=== PATIENT | male | born 1970 | race American Indian/Alaskan Native ===

== ENCOUNTER 2018-05-06 10:11 | Emergency (ER) | payer SELFPAY ==
[2018-05-06 11:33] LABS: BASO % 0.3 % (0.0-2.0); EOS # 0.1 K/uL (0.0-0.7); EOS % 0.8 % (0.0-4.0); HEMOGLOBIN 13.4 g/dL (12.0-18.0); LYMPH # 1.1 K/uL (1.0-4.3); LYMPH % 11.9 % (20.0-40.0); MEAN CORPUSCULAR HEMOGLOBIN 33.5 pg (27.0-31.0); MEAN CORPUSCULAR HGB CONC 33.3 g/dL (33.0-37.0); MONO # 1.8 K/uL (0.0-0.8); MONO % 19.9 % (0.0-10.0); NEUT % 67.1 % (50.0-75.0); RED CELL DISTRIBUTION WIDTH 12.9 % (11.5-14.5); WHITE BLOOD COUNT 8.9 K/uL (4.8-10.8)
[2018-05-06 11:36] LABS: MEAN CELL VOLUME 100.5 fL (80.0-94.0)
[2018-05-06 11:54] LABS: ALB/GLOB RATIO 1.4 (1.0-2.1); ALBUMIN 4.2 g/dL (3.5-5.0); ALT/SGPT 34 U/L (21-72); AST/SGOT 27 U/L (17-59); BLOOD UREA NITROGEN 11 mg/dL (9-20); CALCIUM 8.2 mg/dl (8.6-10.4); GFR NON-AFRICAN AMERICAN > 60
[2018-05-06 11:55] LABS: SQUAMOUS EPITHIAL < 1 /hpf (0-5); URINE BILIRUBIN NEGATIVE (NEGATIVE); URINE BLOOD NEGATIVE (NEGATIVE); URINE CLARITY Clear (Clear); URINE COLOR Yellow (YELLOW); URINE GLUCOSE (UA) NORMAL (Normal); URINE LEUKOCYTE ESTERASE NEG Leu/uL (Negative); URINE PROTEIN 1+ mg/dL (NEGATIVE); URINE UROBILINOGEN NORMAL mg/dL (0.2-1.0)
[2018-05-06 12:03] LABS: B-TYPE NATRIURETIC PEPTIDE 29.4 pg/mL (0-450)
[2018-05-06] MEDS ORDERED: Sodium Chloride 0.9% 1,000 ML IV ONE (12:03)
--- NOTE | 2018-05-06 12:09 | C.PDOC ---
History Of Present Illness 47 year old male presents to ED with complaint of fever for the past 2 days. Patient also complains of chills, body aches, and cough. He denies rash and vomiting. Time Seen by Provider: 05/06/18 10:47 Chief Complaint (Nursing): Cough, Cold, Congestion History Per: Patient History/Exam Limitations: no limitations Onset/Duration Of Symptoms: Days (2) Current Symptoms Are (Timing): Still Present Location Of Pain: Diffuse Myalgias Associated Symptoms: Fever, Chills, Cough, Myalgias. denies: Vomiting, Other (Rash) Past Medical History Reviewed: Historical Data, Nursing Documentation, Vital Signs Vital Signs: Last Vital Signs Temp 102.9 F H 05/06/18 10:33 Pulse 114 H 05/06/18 10:33 Resp 24 05/06/18 10:33 BP 155/87 H 05/06/18 10:33 Pulse Ox 92 L 05/06/18 10:33 - Medical History PMH: Asthma, HTN Surgical History: Cholecystectomy Family History: States: Unknown Family Hx - Social History Hx Tobacco Use: No Hx Alcohol Use: Yes Hx Substance Use: No - Immunization History Hx Tetanus Toxoid Vaccination: No Hx Influenza Vaccination: No Hx Pneumococcal Vaccination: No Review Of Systems Constitutional: Positive for: Fever, Chills, Malaise. Negative for: Weakness Eyes: Negative for: Redness Cardiovascular: Negative for: Chest Pain, Palpitations Respiratory: Positive for: Cough. Negative for: Shortness of Breath Gastrointestinal: Negative for: Vomiting Skin: Negative for: Rash Neurological: Negative for: Weakness, Numbness, Dizziness Physical Exam - Physical Exam Appears: Well, Non-toxic, No Acute Distress Skin: Normal Color, Warm, Diaphoretic Head: Atraumatic, Normacephalic Ear(s): Bilateral: Normal Throat: Normal, No Erythema, No Exudate Neck: Normal ROM, Supple Chest: Symmetrical, No Deformity Cardiovascular: Rhythm Regular, No Murmur Respiratory: No Accessory Muscle Use, No Rales, No Rhonchi, No Wheezing Gastrointestinal/Abdominal: Soft, No Tenderness Extremity: Capillary Refill (<2 seconds) Extremity: Bilateral: Atraumatic, Normal Color And Temperature Pulses: Left Radial: Normal, Right Radial: Normal Neurological/Psych: Oriented x3, Normal Speech, Normal Cognition ED Course And Treatment - Laboratory Results Result Diagrams: 05/06/18 11:29 05/06/18 11:29 Lab Results: NT-Pro-B Natriuret Pep 29.4 pg/mL (0-450) 05/06/18 11:29 Total Bilirubin 1.0 mg/dL (0.2-1.3) 05/06/18 11:29 AST 27 U/L (17-59) 05/06/18 11:29 ALT 34 U/L (21-72) 05/06/18 11:29 Alkaline Phosphatase 71 U/L (38-126) 05/06/18 11:29 Total Protein 7.4 g/dL (6.3-8.3) 05/06/18 11:29 Albumin 4.2 g/dL (3.5-5.0) 05/06/18 11:29 Globulin 3.1 gm/dL (2.2-3.9) 05/06/18 11:29 Albumin/Globulin Ratio 1.4 (1.0-2.1) 05/06/18 11:29 Urine Color Yellow (YELLOW) 05/06/18 11:40 Urine Clarity Clear (Clear) 05/06/18 11:40 Urine pH 5.0 (5.0-8.0) 05/06/18 11:40 Ur Specific [place] 1.025 (1.003-1.030) 05/06/18 11:40 Urine Protein 1+ mg/dL (NEGATIVE) H 05/06/18 11:40 Urine Glucose (UA) Normal mg/dL (Normal) 05/06/18 11:40 Urine Ketones Negative mg/dL (NEGATIVE) 05/06/18 11:40 Urine Blood Negative (NEGATIVE) 05/06/18 11:40 Urine Nitrate Negative (NEGATIVE) 05/06/18 11:40 Urine Bilirubin Negative (NEGATIVE) 05/06/18 11:40 Urine Urobilinogen Normal mg/dL (0.2-1.0) 05/06/18 11:40 Ur Leukocyte Esterase Neg [place]/uL (Negative) 05/06/18 11:40 Urine WBC (Auto) 2 /hpf (0-5) 05/06/18 11:40 Urine RBC (Auto) 1 /hpf (0-3) 05/06/18 11:40 Ur Squamous Epith Cells < 1 /hpf (0-5) 05/06/18 11:40 O2 Sat by Pulse Oximetry: 92 - Radiology CXR: Interpreted by Me, Viewed By Me CXR Interpretation: Yes: Other (minimal plearul effusions on the right side) Progress Note: Labs ordered with UA and flu a/b for patient. CXR ordered for patient. Medical Decision Making Medical Decision Making: On re-exam, the patient reports improvement of symptoms. Lungs are CTA, heart is RRR, abdomen is soft, non-tender and tolerating PO well. Ambulatory in the ED with steady gait. Follow up with the medical doctor within 1-2 days. Return if worsened. Disposition - Disposition Referrals: Kenya Lugo MD [Staff Provider] - Disposition: HOME/ ROUTINE Disposition Time: 13:00 Condition: FAIR Additional Instructions: Follow up with the medical doctor within 1-2 days. Return if worsened. 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 (Delia Renteria) - Scribe Statement The provider has reviewed the documentation as recorded by the Scribe (Delia Renteria) All medical record entries made by the Scribe were at my direction and personally dictated by me. I have reviewed the chart and agree that the record accurately reflects my personal performance of the history, physical exam, medical decision making, and the department course for this patient. I have also personally directed, reviewed, and agree with the discharge instructions and disposition.
--- NOTE | 2018-05-06 13:11 | RAD ---
Date of service: 05/06/2018 HISTORY: fever cough COMPARISON: No prior. TECHNIQUE: Chest PA and lateral FINDINGS: LUNGS: Small opacities at the lung bases. Mild elevation of the right hemidiaphragm P PLEURA: No significant pleural effusion identified. No pneumothorax apparent. CARDIOVASCULAR: No aortic atherosclerotic calcification present. Normal cardiac size. No pulmonary vascular congestion. OSSEOUS STRUCTURES: No significant abnormalities. VISUALIZED UPPER ABDOMEN: Normal. OTHER FINDINGS: None. IMPRESSION: Small opacities at the lung bases. Mild elevation of the right hemidiaphragm.
[2018-05-06 13:21] VITALS: BP 103/62; PULSE 91; RESP 19; TEMP 100.1
[2018-05-06 18:20] VITALS: O2SAT 92
== END 2018-05-06 14:08 | disposition home or self-care (01) ==
LOC: C.ER 10:11
DX: J09.X2 Influenza due to identified novel influenza A virus with other respiratory manifestations (principal)
CPT/HCPCS: 71046; 80053; 81001; 83880; 85025; 87086; 87804; 96360; 99284; J7030